=== PATIENT | male | born 1960 | race Caucasian/White ===

== ENCOUNTER → 2016-12-15 | Outpatient (CLI) | payer OTHER ==
[~2016-12-15] MED LIST: ACETAMINOPHEN650 M5 PO; APAP500; APAP500 PO; COLACE100 MG PO; DIAZEPAM 10 MG10 M2 PO; HYDROCODONE-AP1 EAC6 PO; IBUPROFEN 200200 M1 PO; IBUPROFEN 800800 M1 PO; LEVOTHYROXIN0.125 M1 PO; LEVOTHYROXINE 0.15MG PO; LIPITOR 20 MG T20 M1 PO; LYRICA 75 MG CA75 MG PO; LYRICA150 MG PO; SKELAXIN 800 M800 M1 PO; SONATA10 MG PO; SYNTHROID125 MCG PO; TRAMADOL 50 MG50 MG PO
[2016-12-15 11:56] LABS: ABSOLUTE NEUTROPHILS 3.7 thou/uL (1.4-8.2); BASOPHILS 1.2 % (0.0-2.0); EOSINOPHILS 0.6 % (0.0-3.0); HEMATOCRIT 44.2 % (42.0-52.0); HEMOGLOBIN 15.3 gm/dL (14.0-18.0); LYMPHOCYTES 23.5 % (24.0-44.0); MCH 33.4 pg (26.0-34.0); MCHC 34.7 g/dL (28.0-37.0); MCV 96.2 fL (80.0-100.0); MONOCYTES 10.4 % (1.0-8.0); PLATELET COUNT 273 thou/uL (150-400); POLYS 64.3 % (36.0-66.0); RBC 4.59 mil/uL (4.50-6.00); RDW 12.2 % (10.5-14.5); WBC 5.7 thou/uL (4.0-11.0)
[2016-12-15 11:57] LABS: MANUAL DIFF NO
[2016-12-15 12:45] LABS: ALKALINE PHOSPHATASE 32 U/L (46-116); ANION GAP 7 mmol/L (7-16); BUN 13 mg/dL (7-18); CALCIUM 9.1 mg/dL (8.5-10.1); CHLORIDE 105 mmol/L (98-107); CHOLESTEROL 263 mg/dL (<200); CO2 28 mmol/L (21-32); GLUCOSE 93 mg/dL (74-106); HDL CHOLESTEROL 66 mg/dL (>40); LDL CHOLESTEROL 181 mg/dL (<100); POTASSIUM 4.8 mmol/L (3.5-5.1); SGOT 23 U/L (15-37); SGPT 33 U/L (30-65); SODIUM 140 mmol/L (136-145); TOTAL BILIRUBIN 0.6 mg/dL (<0.1-1.0); TOTAL PROTEIN 6.8 g/dL (6.4-8.2); TRIGLYCERIDE 84 mg/dL (<150); VLDL 17 mg/dL (<40)
[2016-12-15 20:09] LABS: FREE T4 1.43 ng/dL (0.82-1.77)
== END ==
LOC: LABMALL 11:07
PROVIDERS: Internal Medicine
DX: Z00.00 Encounter for general adult medical examination without abnormal findings (principal); E03.9 Hypothyroidism, unspecified; E78.00 Pure hypercholesterolemia, unspecified

== ENCOUNTER → 2017-06-27 | Outpatient (CLI) | payer OTHER ==
[2017-06-27 09:46] LABS: HEMATOCRIT 44.1 % (42.0-52.0); HEMOGLOBIN 15.2 gm/dL (14.0-18.0); MCH 32.7 pg (26.0-34.0); MCHC 34.4 g/dL (28.0-37.0); MCV 94.9 fL (80.0-100.0); PLATELET COUNT 291 thou/uL (150-400); RBC 4.65 mil/uL (4.50-6.00); RDW 12.4 % (10.5-14.5); WBC 6.5 thou/uL (4.0-11.0)
[2017-06-27 09:47] LABS: MANUAL DIFF YES
[2017-06-27 09:58] LABS: ANION GAP 5 mmol/L (7-16); BUN 10 mg/dL (7-18); CALCIUM 8.6 mg/dL (8.5-10.1); CHLORIDE 104 mmol/L (98-107); CO2 30 mmol/L (21-32); GLUCOSE 91 mg/dL (74-106); POTASSIUM 4.3 mmol/L (3.5-5.1); SODIUM 139 mmol/L (136-145)
[2017-06-27 10:00] LABS: ABSOLUTE NEUTROPHILS 4.5 thou/uL (1.4-8.2); PLATELET ESTIMATE NORMAL; TOTAL CELL COUNT 100
[2017-06-27 10:05] LABS: ALBUMIN 3.7 g/dL (3.4-5.0); ALKALINE PHOSPHATASE 37 U/L (46-116); CHOLESTEROL 268 mg/dL (<200); HDL CHOLESTEROL 66 mg/dL (>40); LDL CHOLESTEROL 181 mg/dL (<100); SGOT 21 U/L (15-37); SGPT 37 U/L (30-65); TC:HDL 4.1 Ratio (Not establshd); TOTAL BILIRUBIN 0.5 mg/dL (<0.1-1.0); TOTAL PROTEIN 6.7 g/dL (6.4-8.2); TRIGLYCERIDE 109 mg/dL (<150); VLDL 22 mg/dL (<40)
== END ==
LOC: LABMALL 09:06
PROVIDERS: Internal Medicine
DX: E03.9 Hypothyroidism, unspecified (principal); E78.00 Pure hypercholesterolemia, unspecified; R07.9 Chest pain, unspecified

== ENCOUNTER → 2017-07-13 | Outpatient (CLI) | payer OTHER ==
[~2017-07-13] VITALS: Ht 170.2 cm; Wt 85.3 kg
--- NOTE | ~2017-07-13 | HPC ---
[facility] [address] [address] PAIN MANAGEMENT CONSULTATION Name: JULIA SLOAN Room #: REG Triny Scales#: [id number] Admission: 07/13/17 Attend Phys: Anton Costello DO Discharge: Date of : 62 Report #: [id number] THIS REPORT FOR: //name// CC: Rakesh Costello HISTORY OF PRESENT ILLNESS: The patient is a very pleasant 56-year-old gentleman, last seen in the pain clinic back in May 2016 for lumbosacral spondylosis, was given bilateral L4-L5 and L5-S1 facet joint injections with overall improvement of baseline pain. He has had lumbar decompressive laminectomy and axial back pain. He has also had cervical surgery, anterior cervical disk fusion with Dr. Ra Schrader at C5-C6 and C6-C7. The patient notes that he has developed a new complaint. Pain at the base of the neck on the left side, some tingling in his arms which is worse in the morning. The neck and shoulder pain is quite problematic, rates it at 5 presently, gets up to 7 or 8 on a VAS scale. Reviewing history, again, he uses a cane due to some left leg weakness. He had back surgery in 2000, he has had trauma in 2004 with an industrial accident, a heavy object hit his back. He has had gait disturbance since. PHYSICAL EXAMINATION: Shows a pleasant 56-year-old gentleman. Vital signs are stable. Upper extremity strength is preserved. Tinel's is negative. Deep tendon reflexes are preserved. Hand grasp is. Exquisitely tender over the base of the neck over the left C7-T1 facet. Cervical range of motion is limited secondary to pain. Again, upper extremity strength is good. ASSESSMENT: Symptomatic left C7-T1 facet-mediated pain by history and physical exam. No recent diagnostic studies available. RECOMMENDATIONS: Discussed with the patient today about therapeutic option. We have elected to start with a left C7-T1 facet joint injection under fluoroscopy today, follow up next week for reevaluation. If radicular symptoms and/or paresthesia in the hands continue, we may consider cervical epidural injection under fluoroscopy. PROCEDURE: Left C7-T1 facet joint injection under fluoroscopy. PROCEDURE NOTE: After informed consent was obtained, the patient was taken to fluoroscopy suite, placed in prone position. After sterile prep and drape, skin was raised. A 22-gauge stylet needle was placed to contact posterior aspect of the left C7-T1 facet joint injection under fluoroscopy. AP projection showed needle in the middle of the lateral mass. Lateral projection showed needle approaching the posterior aspect of the joint. Negative aspiration was accomplished. 4 mg of Decadron plus 1 mL of 0.5% preservative-free bupivacaine was injected into and around the joint. Needle [place] [address] PAIN MANAGEMENT CONSULTATION Name: JULIA SLOAN Room #: REG JAYCE Scales#: [id number] Admission: 07/13/17 Attend Phys: Anton Costello DO Discharge: Date of : 62 Report #: [id number] cleansed, Band-Aid was applied. The patient was monitored for an appropriate period of time, discharged in good and stable condition. By: 1643 [id number] Anton Costello DO /nt
[2017-07-13 13:56] VITALS: BP 145/94
== END | disposition home or self-care (01) ==
LOC: PAIN 07:52
DX: M47.813 Spondylosis without myelopathy or radiculopathy, cervicothoracic region (principal); G89.29 Other chronic pain; M47.817 Spondylosis without myelopathy or radiculopathy, lumbosacral region; Z98.890 Other specified postprocedural states; Z88.6 Allergy status to analgesic agent; Z79.899 Other long term (current) drug therapy

== ENCOUNTER → 2017-08-13 | Outpatient (CLI) | payer OTHER ==
[~2017-08-13] VITALS: Ht 172.7 cm; Wt 84.8 kg
[~2017-08-13] MED LIST changes: +NEURONTIN100 MG PO
--- NOTE | ~2017-08-13 | HPC ---
[facility] [address] [place] [address] PAIN MANAGEMENT CONSULTATION Name: FADIFAVILOAJULIA NAPOLES Room #: REG Triny Scales#: [id number] Admission: 08/13/17 Attend Phys: Anton Costello, DO Discharge: Date of : 62 Report #: [id number] THIS REPORT FOR: //name// CC: Rakesh Costello The patient is an extremely pleasant 56-year-old gentleman. He had prior been treated for lumbar radiculopathy, status post decompressive laminectomy and axial back pain. Last visit 07/13/2017. He is actually having increasing pain in his neck. He is status post anterior cervical disk fusion C4-C5 and C5-C6. I did C6-7 facet joint injections, status post anterior cervical disk fusion C5, C6 and C7. I did C7-T1 facet joint injection on the left at last visit. The patient noted near 100% relief of his symptoms with a little recurrence there. The right side has now become more problematic. He believes it was always there, simply was masked by the more prominent left-sided pain. Physical exam does show pain at the base of the cervical spine, bilateral, exacerbated with sidebending and rotation. I did use a plastic model spine today to compare the patient's fluoroscopic images with a plastic model. We looked at where the ACDF fusion is at C5, C6 and C7. I talked about increasing movement at C7-T1, exacerbating pain in the base of the neck. Today, we elected to move forward with bilateral C7-T1 facet joint injections and follow up simply as needed. IMPRESSION: 1. Cervical spondylosis, clinical exam and history. 2. Status post anterior cervical discectomy and fusion with prior history of lumbar decompressive laminectomy and axial back pain. PROCEDURE NOTE: Bilateral C7-T1 facet joint injection under fluoroscopy. Fluoroscopy time under 20 seconds. DESCRIPTION OF PROCEDURE: After informed consent was obtained, the patient was taken to the fluoroscopy suite and placed in prone in position. After sterile prep and drape, skin was raised. A 22-gauge stylet needle was placed to contact posterior aspect of the left C7-T1 facet joint in the middle of the lateral mass. AP and lateral projections showed good needle placement. Second needle was placed in a similar fashion to approach the posterior aspect of the right C7-T1 joint. 4 mg of Decadron, plus 1 mL of 0.5% preservative-free bupivacaine injected at each site. Both needles removed. The area was cleansed. Band-Aid [address] [address] PAIN MANAGEMENT CONSULTATION Name: JULIA SLOAN Room #: REG CLI [facility].#: [id number] Admission: 08/13/17 Attend Phys: Anton Costello DO Discharge: Date of : 62 Report #: [id number] applied. The patient monitored for an appropriate period of time, discharged in good and stable condition. <ELECTRONICALLY SIGNED> By: Anton Costello DO 08/15/17 0807 1115 1245 Anton Costello DO /nt
[2017-08-13 10:18] VITALS: BP 116/84
== END | disposition home or self-care (01) ==
LOC: PAIN 07:06
DX: M47.812 Spondylosis without myelopathy or radiculopathy, cervical region (principal); G89.29 Other chronic pain; M54.9 Dorsalgia, unspecified; Z98.890 Other specified postprocedural states; Z88.6 Allergy status to analgesic agent; Z79.899 Other long term (current) drug therapy

== ENCOUNTER → 2017-08-23 | Outpatient (CLI) | payer OTHER ==
[~2017-08-23] VITALS: Ht 170.2 cm; Wt 84.6 kg
--- NOTE | ~2017-08-23 | HPC ---
[facility] [place] [address] PAIN MANAGEMENT CONSULTATION Name: FADIFAVIOLAJULIA MULLERONY Room #: REG JAYCE Scales#: [id number] Admission: 08/23/17 Attend Phys: Anton Costello DO Discharge: Date of : 62 Report #: [id number] THIS REPORT FOR: //name// CC: Rakesh Costello PAIN CLINIC NOTE The patient is a very pleasant 56-year-old gentleman, prior seen in the pain clinic on 08/13/2017. We progressed to the C7-T1 bilateral facet joint injections. He has a history of ACDF at C5, C6, C7. Ongoing pain in the base of the neck with cervical rotation. He had transient relief following the C7-T1 facet joint injections. He rates his pain as still 7 on a VAS. Today, we talked about moving forward with medial branch dorsal rami diagnostic blocks at C6 and C7. Physical exam is unchanged. ASSESSMENT: Symptomatic cervical spondylosis status post anterior cervical discectomy and fusion with ongoing cervical spondylosis. PROCEDURE: Bilateral C6 and C7 medial branch dorsal rami diagnostic block. PROCEDURE NOTE: After written informed consent was obtained, the patient was taken to the fluoroscopy suite and placed in prone position. After sterile prep and drape, skin wheal was raise. A 22-gauge stylet needle was placed to contact the superior articular process of C7 and C6. AP and lateral projections showed good needle placement corresponding to the C6 and C7 medial branch dorsal rami nerves. Procedure was repeated on the right side. A 1 mL of a 50:50 mix of 0.5% preservative-free bupivacaine plus 1.5% preservative-free Xylocaine with 1:200,000 epinephrine was injected. All 4 needles removed. The area was cleansed and Band-Aid applied. The patient monitored for an appropriate period of time, discharged in good and stable condition, noting incremental improvement with baseline pain. He did call back noting the pain score is about 4-5 on a VAS. He felt the pain was a little bit higher in his neck. We will have the patient come back next visit and consider facet joint injections above the fusion at C3-C4 and C2-C3. Discharged in good stable condition. <ELECTRONICALLY SIGNED> By: Anton Costello DO 08/27/17 0715 1004 2157 Anton Costello DO /nt
[2017-08-23 13:39] VITALS: BP 120/89
== END | disposition home or self-care (01) ==
LOC: PAIN 06:33
DX: M47.812 Spondylosis without myelopathy or radiculopathy, cervical region (principal); M54.2 Cervicalgia; G89.29 Other chronic pain; Z88.6 Allergy status to analgesic agent; Z98.890 Other specified postprocedural states; Z79.899 Other long term (current) drug therapy

== ENCOUNTER → 2017-09-17 | Outpatient (CLI) | payer OTHER ==
[~2017-09-17] VITALS: Ht 170.2 cm; Wt 84.6 kg
--- NOTE | ~2017-09-17 | HPC ---
[facility] [address] [place] [place] [address] PAIN MANAGEMENT CONSULTATION Name: JULIA SLOAN Room #: REG TALTriny Scales#: [id number] Admission: 09/17/17 Attend Phys: Anton Costello DO Discharge: Date of : 62 Report #: [id number] THIS REPORT FOR: //name// CC: Rakesh Costello The patient is a very pleasant 56-year-old gentleman being treated for symptomatic cervical spondylosis status post anterior cervical disk fusion C5, 6, and 7. We proceeded with left and right C7-T1 facet joint injections and medial branch dorsal rami diagnostic blocks with only short and incremental improvement of pain. The patient notes pain is actually superior to the area we have been addressing. Pain is exacerbated with cervical rotation and side bending. It does appear to be above the fusion. After a long discussion with the patient today, we have elected to proceed with bilateral C4-C5 and C3-C4 facet joint injections under fluoroscopy. We will follow up in 2 weeks for consideration for medial branch dorsal rami diagnostic block if indicated clinically. The patient notes subjective pain score today is 6-8 on a VAS. PHYSICAL EXAMINATION: Otherwise, shows a pleasant 56-year-old gentleman. Cervical range of motion is limited. Tenderness over the superior cervical facets. BMI is 29.2 kg/m2. Vital signs stable as noted in the EMR. Does not use tobacco products. He has not fallen in the last 2 months. He does have disconjugate gaze with chronic nystagmus. ASSESSMENT: Symptomatic cervical spondylosis sans radiculopathy, sans myelopathy. PROCEDURE: Bilateral C3-C4 and C4-C5 facet joint injections under fluoroscopy. PROCEDURE NOTE: After written informed consent was obtained, the patient was taken to the fluoroscopy suite and placed in prone position. After sterile prep and drape, skin wheal was raised. A 22-gauge stylet was placed to contact the posterior aspect of the left C3-C4 and left C4-C5 cervical facets in the middle of the lateral mass. AP and lateral projections showed good needle placement. Procedure was repeated on the right side. After all four needles were placed, negative aspiration was accomplished. 2 mg of Decadron plus 1 mL of 0.5% preservative-free bupivacaine was injected at each site. All 4 needles were removed, the area was cleansed, and Band-Aids applied. The patient was monitored for an appropriate period of time, discharged in good and stable condition. Fluoroscopy time was under 20 seconds. The patient noted subjective improvement of baseline pain 6-8 on VAS down to 4 on discharge. We will have him call back on the nurse line for pain score values over the next [address] [address] PAIN MANAGEMENT CONSULTATION Name: JULIA SLOAN Room #: REG JAYCE Scales#: [id number] Admission: 09/17/17 Attend Phys: Anton Costello DO Discharge: Date of : 62 Report #: [id number] hours. If he does get good transient relief, we will seek authorization for bilateral C2, C3, C4 medial branch dorsal rami diagnostic blocks (bilateral). <ELECTRONICALLY SIGNED> By: Anton Costello DO 09/20/17 1010 1154 1459 Anton Costello DO /nt
[2017-09-17 09:28] VITALS: BP 122/71
== END ==
LOC: PAIN 09-03 08:29
DX: M54.12 Radiculopathy, cervical region (principal); M47.892 Other spondylosis, cervical region; G95.89 Other specified diseases of spinal cord

== ENCOUNTER → 2017-10-01 | Outpatient (CLI) | payer OTHER ==
[~2017-10-01] VITALS: Ht 170.2 cm; Wt 84.4 kg
--- NOTE | ~2017-10-01 | HPC ---
[facility] [address] [place] [address] PAIN MANAGEMENT CONSULTATION Name: FADIFAVIOLAJULIA NAPOLES Room #: REG JAYCE Scales#: [id number] Admission: 10/01/17 Attend Phys: Anton Costello DO Discharge: Date of : 62 Report #: [id number] THIS REPORT FOR: //name// CC: Rakesh Costello The patient is a 56-year-old gentleman being treated for cervical spondylosis, prior ACDF. He does not have cervical radicular symptoms nor myelopathic symptoms. Last visit 09/17/2017, I proceeded to do bilateral C3-C4 and C4-C5 cervical facet joint injections. The patient returns to pain clinic today, noting that it afforded excellent relief for several days when pain recurred. Pain continues to be in the neck. We elected to proceed with bilateral C2, C3, C4 medial branch dorsal rami diagnostic blocks. If this affords transient relief, we will plan on moving forward with cervical facet medial branch dorsal rami. The patient understands that we will do bilateral diagnostic blocks, but we will proceed with RFL unilateral side, then we will start with the right side which is worse. ASSESSMENT: Symptomatic cervical spondylosis without myelopathy nor radiculopathy and a patient status post anterior cervical diskectomy and fusion C5, C6, C7. PROCEDURE: Bilateral C3, C4 and C5 medial branch dorsal rami diagnostic blocks. PROCEDURE NOTE: After written informed consent was obtained, the patient was taken to the fluoroscopy suite and placed in prone position. After sterile prep and drape, skin was raised. A 22-gauge stylet needle was placed to contact superior articular process of C5, C4, C3 adjacent to the C3, C4, C5 medial branch dorsal rami nerves. AP and lateral projections showed good needle placement. 1 mL of a 50:50 mix 0.5% preservative-free bupivacaine plus 1.5% preservative-free Xylocaine with 1:200,000 epinephrine was injected in all 3 sites. All 3 needles removed. The area was cleansed. Band-Aid applied. The patient monitored for an appropriate period of time, discharged in good and stable condition, noting dramatic improvement in baseline pain. In fact pain had been rated at a 6 on VAS on admission, was down to 2 on discharge. Given good relief, we will seek authorization for radiofrequency neurolysis, starting on the right side of C3, C4 and C5. <ELECTRONICALLY SIGNED> By: Anton Costello DO 10/04/17 0938 1227 1416 Anton Costello DO /nt
[2017-10-01 10:14] VITALS: BP 133/74
== END | disposition home or self-care (01) ==
LOC: PAIN 07:15
DX: M47.812 Spondylosis without myelopathy or radiculopathy, cervical region (principal); Z98.890 Other specified postprocedural states

== ENCOUNTER → 2017-10-29 | Outpatient (CLI) | payer OTHER ==
[~2017-10-29] VITALS: Ht 170.2 cm; Wt 84.9 kg
--- NOTE | ~2017-10-29 | HPC ---
[facility] [address] [place] [address] PAIN MANAGEMENT CONSULTATION Name: FADIFAVIOLAJULIA NAPOLES Room #: REG JAYCE Scales#: [id number] Admission: 10/29/17 Attend Phys: Anton Costello DO Discharge: Date of : 62 Report #: [id number] THIS REPORT FOR: //name// CC: Rakesh Costello The patient is a very pleasant 57-year-old gentleman status post C5 through C7 ACDF with ongoing cervical spondylosis. We had done diagnostic blocks, the inferior, C6-C7, C7-T1 August 03 and again August 23. With good relief, the patient noted significant pain above. We progressed to do further diagnostic blocks and ultimately RFL of the right C2, C3 and C4 medial branch dorsal rami. Returns to pain clinic today noting that the prior RFL at the superior aspect of the fusion, 10/12/2017 afforded good relief. Now is left with simply pain at the inferior aspect radiating to the shoulder and down the scapula. Pain is compatible with a C7-T1 facet pain distribution. We elected to proceed with radiofrequency neurolysis, C6, C7 and T1. There is some thought that there may be some C6-C7 movement along with C7-T1. Again, he has had diagnostic blocks at both the superior and inferior ACDF locations with transient efficacy. Risks and benefits were discussed including lack of efficacy and increased pain and paralysis. The patient wished to proceed. PROCEDURE NOTE: Cervical facet radiofrequency neurolysis, right C6-7, T1. DESCRIPTION OF PROCEDURE: After written informed consent was obtained, the patient was taken to the fluoroscopy suite and placed in prone position. After sterile prep and drape, a skin wheal was raised. Three 10 mm RFK needle was placed, initial needle was positioned in orientation tangential to the ventral aspect of the articular pillar, although still remaining in close contact with bone along the orientation parallel to the left C6 medial branch nerve. Spot images were obtained, AP and lateral, showing good needle placement. Sensory and motor stimulation were then performed eliciting deep neck and shoulder discomfort, but no evidence of motor stimulation of extremity. Procedure was repeated at C7 and T1. A 1 mL of 1% preservative-free Xylocaine was injected through each needle. All 3 needles were heated to 80 degrees centigrade for 90 seconds. A 2 mg of Decadron plus 1 mL of 0.5% preservative-free bupivacaine injected through all 3 needles. All 3 needles removed. The area was cleansed, Band-Aids applied. The patient monitored for an appropriate period of time, discharged in good and stable condition. Followup will be in 3-4 weeks for reevaluation. Fluoroscopy time was approximately 30 seconds. The patient incidentally notes ongoing lumbar symptoms. He is status post lumbar decompressive laminectomy. He had prior lumbar RFL by my partner, Dr. Rene Danielson some time ago. [place] [address] PAIN MANAGEMENT CONSULTATION Name: JULIA SLOAN Room #: REG CL [facility]#: [id number] Admission: 10/29/17 Attend Phys: Anton Costello DO Discharge: Date of : 62 Report #: [id number] branch dorsal rami diagnostic blocks and neurolysis as well. Discharged in good stable condition. <ELECTRONICALLY SIGNED> By: Anton Costello DO 10/31/17 0753 0849 1141 Anton Costello DO /nt
[2017-10-29 08:14] VITALS: BP 113/80
== END | disposition home or self-care (01) ==
LOC: PAIN 10-25 06:43
DX: M47.812 Spondylosis without myelopathy or radiculopathy, cervical region (principal)

== ENCOUNTER → 2018-11-26 | Outpatient (CLI) | payer OTHER | LOC: MRI 10:02 | DX: M50.121 Cervical disc disorder at C4-C5 level with radiculopathy (principal); M48.02 Spinal stenosis, cervical region; Z88.8 Allergy status to other drugs, medicaments and biological substances; Z88.5 Allergy status to narcotic agent; Z85.850 Personal history of malignant neoplasm of thyroid; Z98.890 Other specified postprocedural states ==

== ENCOUNTER → 2018-12-10 | Outpatient (CLI) | payer OTHER ==
[~2018-12-10] VITALS: Ht 170.2 cm; Wt 84.2 kg
[~2018-12-10] MED LIST changes: +NABUMETONE 500500 M1 PO; +PAMELOR25 MG PO; +SYNTHROID150 MCG PO
--- NOTE | ~2018-12-10 | HPC ---
[facility] [address] [place] [address] PAIN MANAGEMENT CONSULTATION Name: JULIA SLOAN Room #: REG [facility] Yordy#: [id number] Admission: 12/10/18 ������������������ Attend Phys: Julia Costello DO Discharge: ������������������ Date of : 62 Report #: [id number] THIS REPORT FOR: //name// CC: Julia Ramirez MD DATE OF SERVICE: 12/10/2018 CHIEF COMPLAINT: Neck pain, upper extremity pain with intermittent paresthesias. HISTORY OF PRESENT ILLNESS: As you know, the patient is a 58-year-old male who suffers from cervical radiculopathy generated from the area just above his previous fusion. He has an anterior fusion from C5 through C7 and now has changes at the C4-C5 level, which has a large left paracentral disk protrusion resulting in moderate central canal stenosis, reducing the spinal canal to 7 mm, moderate flattening of the ventral thecal sac and cord. He indicates pain today levels of 9.5/10. He returns today in followup visit to discuss the findings of his MRI and to determine if surgical options may be necessary. The patient states he is unable to sleep, go about any activities of daily living due to ongoing pain. He states his pain is numbness, tingling and stabbing in sensation; exacerbated with looking up, looking down, looking to the right or looking to the left; medications, pillow positioning, heat and cold compresses tend to improve pain. He has returned to our clinic to discuss possibility of surgical options based on his new MRI. ALLERGIES: CODEINE. CURRENT MEDICATIONS: Levothyroxine 150 mcg per day, ibuprofen 800 mg t.i.d., diazepam 10 mg p.o. at bedtime, atorvastatin 20 mg per day, Sonata 10 mg per day, Tylenol Extra Strength five times a day, metaxalone 800 mg twice a day. SOCIAL HISTORY: The patient denies tobacco, alcohol, IV or illicit drug use. He is unaccompanied at today's visit. IMAGING: MRI cervical spine obtained 11/26/2018 shows anterior fusion at C5 through C7, which appears stable. There is no change from previous imaging. At C6-C7, there is mild spinal canal stenosis secondary to mild central and right paracentral dorsal osteophytes. At C5-C6, there is moderate spinal stenosis secondary to mild central canal and left paracentral dorsal osteophytes. At C4-C5, there is moderate central canal stenosis secondary to degenerative disk disease with large left paracentral disk protrusion, moderate flattening of the left aspect of the cord and moderate narrowing of the left lateral recess. This is a significant change from previous evaluations. [address] [address] PAIN MANAGEMENT CONSULTATION Name: JULIA SLOAN Room #: REG [facility] Scales#: [id number] Admission: 12/10/18 ������������������ Attend Phys: Julia Costello DO Discharge: ������������������ Date of : 62 Report #: [id number] PHYSICAL EXAMINATION: VITAL SIGNS: Blood pressure 120/69, pulse 72, respiratory rate 16 and unlabored. The patient is 98% on room air. Height 5 feet 7 inches tall, weight 185.6 pounds, BMI calculated 29.1. GENERAL: Well-developed, well-nourished, well-hydrated 58-year-old male appearing his stated age. He is placing pain score today 9.5/10. HEENT: Normocephalic, atraumatic. Pupils equal, round, reactive to light. Extraocular muscles are intact. Sclerae nonicteric without injection. NEUROLOGIC: Cranial nerves 2-12 grossly intact. Speech fluent. The patient deemed a good historian. Noted lateral nystagmus. LUNGS: Clear. No wheezing, rhonchi or rales. CARDIOVASCULAR: Regular. No appreciable gallop, no rub. ABDOMEN: Soft, nontender. EXTREMITIES: Show no clubbing, no cyanosis, no edema. MUSCULOSKELETAL: There is palpatory tenderness over the paraspinal musculature of the cervical spine, right greater than left. No spinous process tenderness. Cervical provocation testing is met with increasing pain in all directions. There is moderate restriction of motion secondary to pain. It does not appear to be an anatomical restriction. Spurling's test positive. Upper extremity strength is symmetrical 5/5 with giveaway strength due to pain. Muscle bulk and tone equal and symmetrical in upper extremities. ASSESSMENT: 1. Cervical radiculopathy. 2. Cervical spinal stenosis. 3. Displacement of cervical intervertebral disk with radiculopathy. 4. Cervical spondylosis with radiculopathy. 5. Cervical degeneration. 6. Chronic intractable pain. PLAN: 1. The patient returns today in followup visit where we have reviewed in its entirety the findings of his recent MRI of cervical spine obtained 11/26/2018 ordered by his primary care physician, Dr. Joby Ramirez. The findings show changes above the anterior fusion at the C5 through C7 level, which might be amenable to surgical options. Other options for treatment were discussed with the patient today, the following was discussed. We discussed physical therapy, stretching exercises and traction techniques as an option, though traction is limited by the anterior fusion in place at the C5 through C7 level. We discussed medication management, adding neuropathic pain medication. The patient is resistant to start any opioid medications and we are in agreement that opiate medications are not necessarily helpful for this type of pain generation. We also discussed possible cervical epidural injection, though given the changes from the fusion, this might not reach the level that the patient is having symptoms from. We also discussed surgical options with [facility] [address] [place] [address] PAIN MANAGEMENT CONSULTATION Name: JULIA SLOAN Room #: REG [facility]..#: [id number] Admission: 12/10/18 ������������������ Attend Phys: Julia Costello DO Discharge: ������������������ Date of : 62 Report #: [id number] the patient for which the patient wishes to move forward at least from an evaluation standpoint. After reviewing each of the proposed treatment options, the patient chose to move forward with referral to Neurosurgery and adjustments in medication. 2. The patient was provided a referral to see Dr. Jordy Barroso, neurosurgeon at [facility]. The patient wishes to stay within the [facility], which would allow him to see Dr. Barroso. I have given the patient a referral to Dr. Barroso along with any valuable notes and findings from imaging studies. He will follow up with Dr. Barroso to make an appointment for evaluation. 3. The patient will be started on nabumetone 500 mg dose 1 tab p.o. t.i.d., this is for baseline pain control. The patient was advised not to use any other nonsteroidal anti-inflammatories with this therapy. He was given #90 tablets, two refills. He is to watch for dyspepsia, worsening of blood pressure, lower extremity edema with use of the medication any of these side effects, discontinue immediately, call for further instructions. 4. The patient will be started on nortriptyline 25 mg dose one tab p.o. at bedtime for three nights, then increase to two tabs p.o. at bedtime for three nights, then three tabs p.o. at bedtime, assuming no improvement in symptoms and no side effects. I have given the patient #90 tablets, two refills, three months' worth of medication. The patient was advised to watch for side effects of sleepiness, disorientation, confusion, mental slowing or excessive dry mouth, dry eyes or difficulty with urination. If he notes any of the side effects, reduce the dose and contact our clinic. 5. We wish to thank Dr. Ramirez for the referral of the patient to our clinic. It appears the patient is moving forward with hopeful surgical option. We will be available to see him back in followup visit to make adjustments in medications if needed. ��������������������������������������������� ���������������������������������������� By: ��������������������������������������������� 0948 23 Julia Costello DO /nt
[2018-12-10 09:48] VITALS: BP 120/69
--- NOTE | 2018-12-10 10:11 | NUR ---
Pain Clinic Assessment: 1. History of Osteoarthritis: Not Applicable History of Rheumatoid Arthritis: Not Applicable 2. Height: 5 ft. 7 in. 170.2 cm. Weight: 185.6 lb. oz. 84.188 kg. Patient's BMI: 29.1 3. Vital Signs: BP: 120/69 Pulse: 72 Resp: 16 Temp: 02 Sat: 98 ECG Mon: 4. Pain Intensity: 9.5 5. Fall Risk: Dizziness: Y Needs help standing or walking: Y Fallen in the last 3 months: N Fall risk comments: 6. Patient on Blood Thinner: None 7. History of Hypertension: N 8. Opioid Therapy greater than 6 weeks: N Opiate Contract Signed: 9. Risk Assessment Tool Provided: LOW RISK 0/3 10. Functional Assessment Tool: 11. Recreational Drug Use: Never Drug Type: Tobacco Use: Never Smoker Tobacco Type: Amount or Packs/day: How Many Years: Alcohol Use: Yes Frequency: Quant:
== END ==
LOC: PAIN 06:46
DX: M50.123 Cervical disc disorder at C6-C7 level with radiculopathy (principal); M47.22 Other spondylosis with radiculopathy, cervical region; M48.02 Spinal stenosis, cervical region; G89.4 Chronic pain syndrome; Z88.5 Allergy status to narcotic agent

== ENCOUNTER → 2019-04-01 | Outpatient (CLI) | payer OTHER | LOC: RAD 10:20 | DX: Z09 Encounter for follow-up examination after completed treatment for conditions other than malignant neoplasm (principal); M43.22 Fusion of spine, cervical region; Z98.1 Arthrodesis status ==

== ENCOUNTER → 2019-06-16 | Outpatient (CLI) | payer OTHER | LOC: RAD 12:20 | DX: M43.22 Fusion of spine, cervical region (principal) ==

== ENCOUNTER → 2020-01-29 | Outpatient (CLI) | payer OTHER ==
[2020-01-29 11:51] LABS: CALCIUM 8.9 mg/dL (8.5-10.1); POTASSIUM 4.3 mmol/L (3.5-5.1); TOTAL BILIRUBIN 0.4 mg/dL (0.2-1.0); TOTAL PROTEIN 6.7 g/dL (6.4-8.2)
== END ==
LOC: LABMALL 10:54
PROVIDERS: ATTEND Family Medicine
DX: E78.2 Mixed hyperlipidemia (principal); M54.12 Radiculopathy, cervical region; F51.01 Primary insomnia; I10 Essential (primary) hypertension

== ENCOUNTER → 2020-07-01 | Outpatient (CLI) | payer OTHER ==
[2020-07-01 16:22] LABS: HEMATOCRIT 43.8 % (42.0-52.0); HEMOGLOBIN 14.9 gm/dL (14.0-18.0); MCH 32.8 pg (26.0-34.0); MCHC 34.1 g/dL (28.0-37.0); MCV 95.9 fL (80.0-100.0); PLATELET COUNT 285 thou/uL (150-400); RBC 4.56 mil/uL (4.50-6.00); RDW 12.4 % (10.5-14.5); WBC 6.4 thou/uL (4.0-11.0)
[2020-07-01 16:42] LABS: ALBUMIN 4.1 g/dL (3.4-5.0); ANION GAP 8 mmol/L (7-16); BUN 16 mg/dL (7-18); CALCIUM 9.3 mg/dL (8.5-10.1); CHLORIDE 103 mmol/L (98-107); CHOLESTEROL 193 mg/dL (<200); CO2 28 mmol/L (21-32); CREATININE 1.1 mg/dL (0.7-1.3); GLUCOSE 96 mg/dL (74-106); HDL CHOLESTEROL 71 mg/dL (>40); LDL CHOLESTEROL 100 mg/dL (<100); POTASSIUM 4.3 mmol/L (3.5-5.1); SGOT 25 U/L (15-37); SGPT 45 U/L (30-65); SODIUM 139 mmol/L (136-145); TC:HDL 2.7 Ratio (Not establshd); TOTAL BILIRUBIN 0.3 mg/dL (0.2-1.0); TOTAL PROTEIN 7.1 g/dL (6.4-8.2); TRIGLYCERIDE 110 mg/dL (<150); VLDL 22 mg/dL (<40)
[2020-07-01 16:45] LABS: ABSOLUTE NEUTROPHILS 4.4 thou/uL (1.4-8.2)
== END ==
LOC: LAB 15:13
PROVIDERS: ATTEND Family Medicine
DX: Z12.5 Encounter for screening for malignant neoplasm of prostate (principal); Z00.00 Encounter for general adult medical examination without abnormal findings; E78.2 Mixed hyperlipidemia; M47.22 Other spondylosis with radiculopathy, cervical region

== ENCOUNTER → 2020-08-24 | Outpatient (CLI) | payer OTHER ==
[~2020-08-24] VITALS: Ht 170.2 cm; Wt 86.6 kg
[~2020-08-24] MED LIST changes: +BACLOFEN 10MG T10 MG PO
[2020-08-24 13:00] VITALS: BP 121/72
--- NOTE | 2020-08-24 13:20 | NUR ---
Pain Clinic Assessment: 1. History of Osteoarthritis: Not Applicable History of Rheumatoid Arthritis: Not Applicable 2. Height: 5 ft. 7 in. 170.2 cm. Weight: 191.0 lb. oz. 86.637 kg. Patient's BMI: 29.9 3. Vital Signs: BP: 121/72 Pulse: 71 Resp: 16 Temp: 02 Sat: 100 ECG Mon: 4. Pain Intensity: 7 5. Fall Risk: Dizziness: N Needs help standing or walking: Y Fallen in the last 3 months: N Fall risk comments: 6. Patient on Blood Thinner: None 7. History of Hypertension: N 8. Opioid Therapy greater than 6 weeks: N Opiate Contract Signed: 9. Risk Assessment Tool Provided: LOW RISK 0 10. Functional Assessment Tool: 11. Recreational Drug Use: Never Drug Type: Tobacco Use: Never Smoker Tobacco Type: Amount or Packs/day: How Many Years: Alcohol Use: Yes Frequency: Daily Quant: 1 BEER
--- NOTE | 2020-08-25 10:29 | HPC ---
[facility] [place] [address] PAIN MANAGEMENT CONSULTATION Name: FADIJULIA SALMERON [id number] Admission: 08/24/20 Attend Phys: Julia Costello DO Discharge: Date of : 62 Report #: [id number] THIS REPORT FOR: cc: Joby Ramirez MD, Neal A. MD Johnson, James E. DO ~ DATE OF SERVICE: 08/24/2020 CHIEF COMPLAINT: Neck pain, left upper extremity pain with paresthesias. HISTORY OF PRESENT ILLNESS: As you know, the patient is a 59-year-old male, returning today in followup visit with recurrent neck pain, left upper extremity pain with paresthesias. At last visit, the patient was seen and sent for Neurosurgery consultation as he had a large paracentral disk protrusion that required surgical intervention. He underwent the surgical treatment with Dr. Barroso with followup MRI on 04/01/2019 showing anterior fusion at C4-C5 and anterior fusion at C5 through C7 consistent with the surgery performed by Dr. Barroso. The patient was doing well post-surgically, but unfortunately his symptoms have begun to return now involving the left upper extremity. He states pain radiates up the neck towards the head, but also out of the arm in a dermatomal distribution. He describes the pain as dull, aching, numbness, tingling deep in sensation. He places pain score 7/10. States pain is exacerbated with looking down and sleeping in the wrong position and computer work. He states medications, lying down, pressure, stretching exercises and traction techniques tend to improve pain. He has been referred back to our clinic to discuss interventional treatment options to address recurrent cervical radiculopathy. ALLERGIES: CODEINE. CURRENT MEDICATIONS: Levothyroxine 150 mcg per day, ibuprofen 800 mg t.i.d., diazepam 10 mg p.o. at bedtime, atorvastatin 10 mg per day, Sonata 10 mg once a day, acetaminophen 500 mg 4 times a day, Skelaxin 800 mg once a day. SOCIAL HISTORY: The patient denies tobacco, alcohol, IV or illicit drug use. He is unaccompanied today. IMAGING: No new imaging available. PHYSICAL EXAMINATION: VITAL SIGNS: Blood pressure 121/72, pulse 71, respiratory rate 16 and unlabored. The patient is 100% on room air. Height 5 feet 7 inches tall, weight 191 pounds, BMI calculated 29.9. GENERAL: Well-developed, well-nourished, well-hydrated 59-year-old male appearing stated age, pain is rated today at 7/10. HEENT: Normocephalic, atraumatic. The patient has nystagmus noted in lateral [facility] [address] [place] [address] PAIN MANAGEMENT CONSULTATION Name: JULIA SLOAN Room #: REG [facility] ChristyChristy#: [id number] Admission: 08/24/20 Attend Phys: Julia Costello DO Discharge: Date of : 62 Report #: [id number] fashion consistent with the patient's history. He is wearing a mask in compliance with COVID-19 regulations. EXTREMITIES: Show no clubbing, no cyanosis, no edema. MUSCULOSKELETAL: The patient has cervical provocation testing met with increased pain. He has pretty good rotational capabilities. There is stretching sensation and pulling sensations consistent with postsurgical changes with these motions. Spurling's test is equivocal on the left, negative right. Upper extremity strength appears equal and symmetrical. Muscle bulk and tone is equal and symmetrical in upper extremities. ASSESSMENT: 1. Symptomatic cervical radiculopathy. 2. Recurrent cervical radicular symptoms. 3. Displacement of cervical intervertebral disk with radiculopathy. 4. Cervical spondylosis with radiculopathy. 5. Cervical degeneration. 6. Chronic intractable pain. PLAN: 1. Based on today's physical exam and history the patient has provided, the description the patient uses in regards to pain as well as the location of symptoms, it would appear the patient is suffering from a new onset of cervical radiculopathy. Unfortunately, it appears that the patient's neck symptoms are now radiating down to the left arm and into the proximal portion of the arm consistent with cervical radiculopathy. We have discussed the treatment options we have available these include physical therapy, stretching exercises and traction techniques, which has been working well for the patient, is doing home traction treatment. We discussed medication management adding neuropathic medications such as amitriptyline, nortriptyline, Cymbalta, Lyrica. We also discussed adding a new muscle relaxant as Skelaxin has a low efficacy, but does have a low side effect profile, which makes it agreeable to most patients. We discussed cervical epidural injection under fluoroscopic guidance and ultimately surgical decompression. After reviewing risks and benefits of all proposed treatment options, the patient chose to make adjustments in medication management initially. 2. The patient will discontinue metaxalone, in place will be using baclofen 10 mg dose 1 tab p.o. t.i.d. I have given the patient #90 tablets. I advised the patient not drive or operate heavy equipment while on this medication as it can lead to somnolence, decreased mental acuity, disorientation and confusion. He will utilize the medication on an as needed basis to address the axial neck pain secondary to muscle spasming due to a previous 3 level fusions. 3. The patient and I did discuss that we have some concern that the patient may have suffered changes in the cervical spine that is consistent with worsening foraminal stenosis, specifically on the left side. Prior imaging in 2019 did show changes at the level below the cervical fusions and this may be the source of symptoms today. If the patient does not see improvement in symptoms, but yet [facility] [address] [place] [address] PAIN MANAGEMENT CONSULTATION Name: JULIA SLOAN Room #: REG CLTriny Herbert.#: [id number] Admission: 08/24/20 Attend Phys: Julia Costello DO Discharge: Date of : 62 Report #: [id number] continues to experience neck pain and left upper extremity symptoms, I would recommend imaging. X-ray imaging will not provide us a benefit of evaluating the soft tissue and thus we would recommend a cervical MRI without contrast. This could be performed and then we can review those findings and determine if interventional treatment such as epidural injections would be recommended or re-referral for surgical intervention. The patient will contact our clinic if he does not see improvement with conservative treatment. 4. The patient will continue traction techniques at home. If he feels he wishes to trial a more formalized traction technique, we consider the patient off for physical therapy to undergo the traction with a more professional device, which will allow for more linear traction and better improvement in symptoms. If the patient wishes to entertain this idea of treatment, he is to contact our clinic. 5. We plan to see the patient back in followup visit in approximately 2-3 weeks to review efficacy of medications and discuss treatment options based on the response. <ELECTRONICALLY SIGNED> By: Julia Costello DO 08/25/20 [id number] Julia Costello DO /nt
== END ==
LOC: PAIN 06:52
PROVIDERS: ATTEND Anesthesiology Pain Medicine
DX: M50.10 Cervical disc disorder with radiculopathy, unspecified cervical region (principal); M47.22 Other spondylosis with radiculopathy, cervical region; G89.29 Other chronic pain; M79.642 Pain in left hand; R20.2 Paresthesia of skin; Z88.8 Allergy status to other drugs, medicaments and biological substances; Z79.899 Other long term (current) drug therapy

== ENCOUNTER → 2020-11-02 | Outpatient (CLI) | payer OTHER | LOC: MRI 10:26 | PROVIDERS: ATTEND Anesthesiology Pain Medicine | DX: M48.02 Spinal stenosis, cervical region (principal); M47.22 Other spondylosis with radiculopathy, cervical region; M25.78 Osteophyte, vertebrae; Z98.1 Arthrodesis status ==

== ENCOUNTER → 2020-12-02 | Outpatient (CLI) | payer OTHER | LOC: MRI 12-01 14:29 | PROVIDERS: ATTEND Neurological Surgery | DX: M47.26 Other spondylosis with radiculopathy, lumbar region (principal); M48.061 Spinal stenosis, lumbar region without neurogenic claudication ==

== ENCOUNTER → 2021-01-27 | Outpatient (CLI) | payer OTHER | LOC: MRI 08:12 | PROVIDERS: ATTEND Neurological Surgery | DX: M47.814 Spondylosis without myelopathy or radiculopathy, thoracic region (principal); M48.04 Spinal stenosis, thoracic region; M89.38 Hypertrophy of bone, other site; M25.78 Osteophyte, vertebrae ==

== ENCOUNTER → 2021-07-12 | Outpatient (CLI) | payer OTHER ==
[2021-07-12 14:54] LABS: URINE BILIRUBIN NEGATIVE (Negative); URINE BLOOD NEGATIVE (Negative); URINE CLARITY CLEAR; URINE COLOR YELLOW; URINE GLUCOSE-RANDOM* NEGATIVE (Negative); URINE KETONES NEGATIVE (Negative); URINE LEUKOCYTES-REFLEX NEGATIVE (Negative); URINE NITRITE-REFLEX NEGATIVE (Negative); URINE PROTEIN (DIPSTICK) NEGATIVE (Negative); URINE UROBILINOGEN 0.2 E.U./dl (0.2-1.0)
[2021-07-12 14:57] LABS: ABSOLUTE NEUTROPHILS 4.9 thou/uL (1.4-8.2); BASOPHILS 0.7 % (0.0-2.0); EOSINOPHILS 0.4 % (0.0-3.0); HEMATOCRIT 43.5 % (42.0-52.0); HEMOGLOBIN 14.8 gm/dL (14.0-18.0); LYMPHOCYTES 17.8 % (24.0-44.0); MCH 32.9 pg (26.0-34.0); MCHC 34.1 g/dL (28.0-37.0); MCV 96.5 fL (80.0-100.0); MONOCYTES 7.8 % (1.0-8.0); PLATELET COUNT 304 thou/uL (150-400); POLYS 73.3 % (36.0-66.0); RBC 4.51 mil/uL (4.50-6.00); RDW 12.5 % (10.5-14.5); WBC 6.7 thou/uL (4.0-11.0)
[2021-07-12 15:19] LABS: ALBUMIN 3.7 g/dL (3.4-5.0); ANION GAP 10 mmol/L (7-16); BUN 16 mg/dL (7-18); CALCIUM 8.6 mg/dL (8.5-10.1); CHLORIDE 105 mmol/L (98-107); CHOLESTEROL 200 mg/dL (<200); CO2 27 mmol/L (21-32); CREATININE 1.1 mg/dL (0.7-1.3); GLUCOSE 119 mg/dL (74-106); HDL CHOLESTEROL 68 mg/dL (>40); LDL CHOLESTEROL 85 mg/dL (<100); POTASSIUM 4.3 mmol/L (3.5-5.1); SGOT 21 U/L (15-37); SGPT 31 U/L (30-65); SODIUM 142 mmol/L (136-145); TC:HDL 2.9 Ratio (Not establshd); TOTAL BILIRUBIN 0.4 mg/dL (0.2-1.0); TOTAL PROTEIN 6.7 g/dL (6.4-8.2); TRIGLYCERIDE 236 mg/dL (<150); VLDL 47 mg/dL (<40)
== END ==
LOC: LAB 14:22
PROVIDERS: ATTEND Family Medicine
DX: Z12.5 Encounter for screening for malignant neoplasm of prostate (principal); Z00.00 Encounter for general adult medical examination without abnormal findings